=== PATIENT | female | born 2000 | race African-American/Black ===

== ENCOUNTER 2019-06-11 19:49 | Emergency (ER) | payer OTHER ==
[2019-06-11] MEDS ORDERED: Tetracaine 0.5% OPHTH SOLN/PF 4 ML BOT ONE (20:01)
== END 2019-06-11 20:11 | disposition home or self-care (01) ==
LOC: MADERS 19:49
DX: S05.01XA Injury of conjunctiva and corneal abrasion without foreign body, right eye, initial encounter (principal); X58.XXXA Exposure to other specified factors, initial encounter
CPT/HCPCS: 99283

== ENCOUNTER 2023-02-14 05:59 | Emergency (ER) | payer MEDICAID, OTHER ==
[2023-02-14] MEDS ORDERED: Ketorolac Tromethamine 30 MG/ML VIAL ONE (06:27)
== END 2023-02-14 07:02 | disposition home or self-care (01) ==
LOC: MADERS 05:59
DX: G44.209 Tension-type headache, unspecified, not intractable (principal)
CPT/HCPCS: 96374; J1885

== ENCOUNTER 2023-02-15 00:37 | Emergency (ER) | payer MEDICAID ==
[2023-02-15 00:59] LABS: Bilirubin Negative (Negative); Blood, Urine Moderate (Negative); Glucose, Urine (Dipstick) Negative (Negative); Ketone, Urine Negative (Negative); Leukocyte Negative (Negative); Nitrite Negative (Negative); Protein, Urine (Dipstick) Negative (Neg-Trace); Specific Gravity, Urine 1.025 (1.005-1.030); Urobilinogen 0.2 mg/dL (Less than 2)
[2023-02-15 01:02] LABS: Clarity Hazy (Clear)
[2023-02-15 01:03] LABS: Mucous/LPF 1+ LPF (<2+); Pregnancy Test - Urine (BHCG) Negative (Negative); Pregu Control Background? CLEAR/WHITE (CLR/WHITE); Pregu Control Bar Appear? YES (CONTROL BAR); RBC/HPF Greater than 50 HPF (0-3); Specific Gravity 1.025 (1.002-1.036); WBC/HPF 0-3 HPF (0-3)
[2023-02-15] MEDS ORDERED: Dexamethasone 10 MG/ML VIAL ONE (01:20)
[2023-02-15] MEDS ORDERED: Sodium Chloride 0.9% 1,000 ML ONE (01:20)
[2023-02-15] MEDS ORDERED: Metoclopramide HCl 10 MG/2 ML VIAL ONE (01:20)
[2023-02-15] MEDS ORDERED: Ketorolac Tromethamine 60 MG/2 ML VIAL ONE (01:20)
[2023-02-15] MEDS ORDERED: Sodium Chloride 0.9% 100 ML ONE (01:20)
[2023-02-15] MEDS ORDERED: diphenhydrAMINE 50 MG/ML VIAL ONE (01:20)
[2023-02-15 01:46] LABS: Band 3 % (5-11); Eosinophils 2 % (0-10); Hemoglobin 12.7 g/dL (12.0-16.0); Lymphocytes 25 % (21-51); MDiff Complete? YES; Mean Platelet Volume 10.1 fL (7.4-10.4); Monocytes 6 % (0-10); Neutrophil 64 % (42-75); Platelet Count 316 10x3/uL (130-400); Platelet Morphology Comment Appears Adequate; RBC Distribution Width 13.5 % (11.5-14.5); RBC Morphology Normal; Red Blood Cell (RBC) Count 4.68 mill/uL (4.20-5.40)
[2023-02-15 01:50] LABS: Anion Gap 14 mmol/L (10-20); BUN (Urea Nitrogen) 6 mg/dL (7.0-18.7); Calc. Creatinine Clearance 0 mL/min (70-130); Calcium 9.2 mg/dL (7.8-10.44); Carbon Dioxide 21 mmol/L (22-29); Chloride 106 mmol/L (98-107); Estimated GFR 106; Glucose 93 mg/dL (70-105); Potassium 4.1 mmol/L (3.5-5.1); Sodium 137 mmol/L (136-145)
== END 2023-02-15 02:45 | disposition home or self-care (01) ==
LOC: MADERS 00:37
DX: G43.909 Migraine, unspecified, not intractable, without status migrainosus (principal)
CPT/HCPCS: 70450; 80048; 81003; 81015; 81025; 85025; 96365; 96374; 96375; J1100; J1200; J1885; J2765; J7050

== ENCOUNTER 2023-06-18 15:53 | Emergency (ER) | payer MEDICAID | END 2023-06-18 16:45 | disposition home or self-care (01) | LOC: MADERS 15:53 | DX: J02.9 Acute pharyngitis, unspecified (principal) | CPT/HCPCS: 87081; 87430; 99283 ==